=== PATIENT | male | born 1950 | race Caucasian/White ===

== ENCOUNTER 2017-02-24 13:07 | Inpatient (IN) | payer MEDICARE, OTHER ==
[~2017-02-24] VITALS: Ht 177.8 cm; Wt 95.5 kg
[~2017-02-24 13:07] MED LIST: ASA CHILDREN'S81 MG PO; AUGMENTIN875 MG PO; COZAAR DPS50 MG PO; MEVACOR20 MG PO; THERA1 EACH PO; TYLENOL DPS325 MG PO; VITAMIN D2400 UNIT PO
--- NOTE | 2017-02-26 09:26 | HP ---
ADMIT: 02/24/2017 RM/LOC: [facility] MR#: [id number] [address] [address] CHRISTOPHE FULTON [address] [place] [address] History and Physical SEX: M AGE: 66 : 1950 DATE OF SERVICE: 02/24/2017 CHIEF COMPLAINT: Lower abdominal pain. HISTORY OF PRESENT ILLNESS: Christophe Fulton presented to the emergency room after onset over the last 24 hours of a pretty severe fluctuating right lower quadrant abdominal pain, similar to the pain that he had last June when he was admitted to the hospital and diagnosed with acute Meckel diverticulitis. His bowel movements have been normal and he has not had any vomiting, may be a little nausea and really no other symptoms. He does not have any fevers, but he had period of chills before coming to the emergency room lasting several minutes. Dr. Nunes evaluated him and after examining him, ordered a CT scan of his abdomen which shows some terminal ileitis and most likely recurrent Meckel diverticulitis, it was not obstructed or obviously perforated. His workup also showed white count of 20,000 and a lactic acid above 5, so the sepsis protocol was undertaken and he is now getting IV fluid bolus. He has not been hypotensive. He denies any other symptoms. PAST MEDICAL HISTORY: He gets his regular general medical care at the [facility], although we see him episodically. Known chronic health conditions include type 2 diabetes, hypertension, dyslipidemia, and gout. PAST SURGICAL HISTORY: None. MEDICATIONS: 1. Losartan. 2. Vitamin D3. 3. Lovastatin. 4. Aspirin. ALLERGIES AND INTOLERANCES: Macrolides. Penicillin is in question but it is listed, he thinks he is probably not truly allergic to it. FAMILY HISTORY: Positive for coronary artery disease in both parents and in two siblings. Also hypertension, asthma, and diabetes in his siblings. SOCIAL HISTORY: He is , accompanied by spouse and family. He is a nonsmoker. No alcohol. REVIEW OF SYSTEMS: CONSTITUTIONAL: Chills. ENT: Negative. EYES: No acute complaints. RESPIRATORY: No cough or shortness of breath. CARDIOVASCULAR: No chest pain. GASTROINTESTINAL: As in the above history. GENITOURINARY: No acute complaints. MUSCLE, BONE, JOINT: No acute complaints. NEURO: Negative. PSYCH: Negative. ADMIT: 02/24/2017 RM/LOC: [facility] MR#: [id number] [address] [address] CHRISTOPHE FULTON [address] [place] [address] History and Physical SEX: M AGE: 66 : 1950 HEMATOLOGIC: No history of bleeding or blood clots. PHYSICAL EXAMINATION: GENERAL: He is obviously uncomfortable. VITAL SIGNS: Reviewed. He is not hypotensive. His heart rate is right at 100. His sats are mid 90s on room air. He is not tachypneic and not febrile. ENT: TMs are clear. Oral mucous membranes are moist. No nasal discharge. Hearing is satisfactory. EYES: Pupils are equal and reactive. Sclerae are normal. NECK: No masses or tenderness. LUNGS: Clear throughout. Normal respiratory effort. HEART: Regular rhythm. No murmurs. ABDOMEN: Tender in the right lower quadrant. Upper abdomen not tender. Bowel sounds normal. GENITALIA: Unremarkable to cursory exam. EXTREMITIES: Upper extremities, grossly normal. Lower extremities, grossly normal. No edema in his lower extremities. Good pulses in his feet. SKIN: No rashes. PSYCH: He is calm, not overtly anxious or depressed. NEURO: Grossly intact. IMPRESSION: 1. Acute recurrent Meckel diverticulitis. 2. Meets criteria for sepsis. 3. Type 2 diabetes. 4. Hypertension. PLAN: I have discussed with Dr. Oneal and also with MIKO Ackerman. He has been admitted. Follow the sepsis protocol. IV antibiotics have been ordered. Monitor his diabetes. We will hold his losartan and his other routine medications for the time being. We will appreciate the Surgery opinion as to if he needs surgery and the timing of surgery. Discussed all this with Christophe with family present. Victor Manuel Sofia MD/ cecily JOB #: [id number] CC: Andriy Nunes MD, Attending Physician UNKNOWN, Family Physician
[2017-03-03] MEDS ORDERED: FLAGYL-DPS500 MG PO (19:04)
[2017-03-03] MEDS ORDERED: CIPRO DPS500 MG PO (19:04)
[2017-03-03] MEDS ORDERED: VITAMIN D31000 UNI1 PO (19:06)
[2017-03-03] MEDS ORDERED: MIRALAX PACKET17 GM PO (19:06)
[2017-03-03] MEDS ORDERED: HYDROCODON-ACE1 EAC4 PO (19:07)
--- NOTE | 2017-03-05 21:25 | ER ---
ADMIT: 02/24/2017 RM/LOC: 409 [facility] MR#: [id number] [address] [address] KIKI GARCIA [address] [place] [address] Emergency Room Report SEX: M AGE: 66 : 1950 DATE: 02/24/2017 CHIEF COMPLAINT: Abdominal pain. HISTORY OF PRESENT ILLNESS: This is a pleasant 66-year-old male, who presents to the ER complaining of severe abdominal pain for the past 6 hours. The patient states he has felt fine over the last few days until this morning when he had an acute onset of lower abdominal pain. Initial conversation with the patient, he indicates he has severe right lower quadrant pain. He admits to chills, nausea, sweating, and loss of appetite. The patient states he was admitted in June 2016 with an exacerbation of Meckel diverticulitis. He has had no problems with this since that time. He was to follow up with Dr. Oneal for possible surgical intervention to remove the diverticulum; however, he has not followed up to date. He denies any change in his bowel habits. No diarrhea. No constipation. Denies any blood in his stool. No vomiting. PAST MEDICAL HISTORY: Significant for diabetes; however, he is not currently on any medication for this. He does have hypertension and hyperlipidemia for which he takes losartan and lovastatin. ALLERGIES: ERYTHROMYCIN AND PENICILLIN. COURSE IN THE ER: The patient is seen and examined. He is found to be in moderate distress, complaining of severe lower abdominal pain. The patient's belly is soft; however, there is some tenderness and guarding about the lower abdomen the patient indicates primarily over the right lower quadrant. Bowel sounds are decreased. He is slightly tachycardiac on initial exam. He was given a total of 10 mg of morphine and 2 mg of Dilaudid on department for pain control for which he states makes him comfortable, but he continues to rate pain as 6/10. LABORATORY DATA: Drawn significant for lactic acid of 5.6 as well as white count of 20.9, hemoglobin 14.8, hematocrit 43.9, and platelets 234. CMP; sodium 140, potassium 3.2, chloride 103, CO2 of 25, glucose 203, and creatinine 1.2. Liver enzymes within normal limits. Cardiac markers are ADMIT: 02/24/2017 RM/LOC: 409 [facility] MR#: [id number] [address] [address] KIKI GARCIA [address] [place] [address] Emergency Room Report SEX: M AGE: 66 : 1950 negative. EKG shows sinus tach without any ST-T changes. CT abdomen and pelvis is completed and discussed with both Dr. Estrada and Eusebio, who agree of CT significant for Meckel diverticulitis versus terminal ileitis. DISPOSITION: Dr. Nunes did see and examine the patient. Discussed the patient with Dr. Sofia, who agreed to admit the patient for IV antibiotics, pain control as well as surgical consultation. We did inform the patient of the lab and CT findings today as well as the need for hospitalization. The patient was admitted to med/surg under the care of Dr. Sofia in stable condition. IMPRESSION: Terminal ileitis versus Meckel diverticulitis. MIKO Alonso / Andriy Nunes MD / olivel JOB #: [id number] CC: Victor Manuel Sofia MD, Attending Physician Victor Manuel Sofia MD, Family Physician
--- NOTE | 2017-03-17 09:32 | DS ---
ADMIT: 02/24/2017 RM/LOC: 409 [facility] MR#: [id number] [address] [address] JOSEKIKI [address] [place] [address] General Discharge Summary SEX: M AGE: 66 : 1950 ADMISSION DATE: 02/24/2017 DISCHARGE DATE: 03/02/2017 FINAL DIAGNOSES: 1. Acute Meckel's diverticulitis. 2. Acute sepsis secondary to #1. 3. Postop urinary retention, resolved. 4. Type 2 diabetes. PROCEDURES: Exploratory laparoscopy, open, segmental small bowel resection of Meckel's diverticulum, and appendectomy NARRATIVE: This is a 66-year-old gentleman who was admitted to Acute Care. See my history and physical examination for more complete details. Chief complaint is lower abdominal pain over the 24 hours prior to admission, severe, right lower quadrant pain similar to the pain he had last June when he was admitted to the hospital and diagnosed with acute Meckel diverticulitis and managed medically at that time. In the emergency room, he had a white count of 20,000, lactate above 5, and it eventually showed elevation of his procalcitonin. His blood cultures came back negative. CT scan of the abdomen showed terminal ileitis and most likely recurrent Meckel's diverticulitis. Surgery was consulted and concurred with that diagnosis. Past medical history notable for the diagnoses above plus hypertension, dyslipidemia, and gout. Initial exam by myself in the emergency room showed him in obvious discomfort, heart rate 100. He was not hypertensive, saturating in mid 90s room air. He was not febrile. Cardiorespiratory exam unremarkable. Abdomen tender in right lower quadrant without rebound. Upper abdomen nontender. Had normal white count, was 20,000, which eventually normalized during his hospital stay. Hemoglobin and platelets unremarkable, as was his urinalysis. His BUN and creatinine were also within normal limits. Procalcitonin was 3.1. Bedside Accu-Cheks were stable throughout his hospital stay and for the most past less than 200. Blood culture showed no growth. Chest x-ray was negative. The patient was admitted to Acute Care. Surgery was consulted. He was treated with IV Mefoxin initially plus IV fluids. Medical status was monitored but his abdominal pain worsened on the second hospital day, so he was taken to the operating room where previously mentioned surgery was performed. Postoperatively, he had some issues with urinary retention which resolved without catheterization. His abdominal pain slowly improved. His diet and activity were advanced over the next several days. His home blood pressure medications were reinstituted by my partner in my absence. He was felt ready for dismissal on March 02. At that time, his vital signs are stable, he was voiding okay. He had had a bowel movement the day before. Postop pain was subsiding, so he was dismissed to office followups both with myself and with Dr. Oneal. DISCHARGE MEDICATIONS: 1. Cozaar 50 mg daily. ADMIT: 02/24/2017 RM/LOC: 409 [facility] MR#: [id number] [address] [place] [address] KIKI GARCIA [address] [place] [address] General Discharge Summary SEX: M AGE: 66 : 1950 2. MiraLax 17 g packet once a day. 3. Lortab for severe postop pain, otherwise Tylenol. 4. Vitamin D3 1000 units daily. 5. Aspirin 81 mg daily. 6. Multivitamin one daily. 7. Lovastatin 20 mg daily. Cipro and metronidazole were also ordered postoperatively. He would be on an ADA diet. After our followups, he would do his usual outpatient followup with the [facility], which is during the month of March. PROGNOSIS: Good. Victor Manuel Sofia MD/ cecily JOB #: [id number] CC: Victor Manuel Sofia MD, Attending Physician Victor Manuel Sofia MD, Family Physician . [facility]
--- NOTE | 2017-03-28 13:25 | OR ---
ADMIT: 02/24/2017 RM/LOC: 409 [facility] MR#: [id number] [address] [address] KIKI GARCIA [address] [place] [address] Operative/Delivery Room Report SEX: M AGE: 66 : 1950 SURGERY DATE: 02/25/2017 SURGEON: Marcial Oneal MD PREOPERATIVE DIAGNOSIS: Meckel's diverticulitis. POSTOPERATIVE DIAGNOSIS: Meckel's diverticulitis. FINAL PATHOLOGY: Pending. PROCEDURE PERFORMED: Exploratory laparoscopy, and then I did an open segmental small bowel resection of this Meckel's in the distal small bowel as well as an appendectomy. ANESTHESIA: General endotracheal tube anesthesia. ESTIMATED BLOOD LOSS: 50 mL or less. INDICATION FOR PROCEDURE: Please see H and P. PROCEDURE IN DETAIL: After the risks, benefits, possible complications, and the alternatives had been explained and informed consent had been obtained, the patient was taken back to the operating room, underwent general endotracheal tube anesthesia, and the surgical field was prepped and draped in sterile manner. First, an infraumbilical incision was made. The Veress needle was inserted. The abdomen was insufflated with CO2. Once there was adequate insufflation, a 5 mm suprapubic and another 5 mm left-sided port were placed. Started looking, there was no doubt the inflammatory changes were down the right lower quadrant. Started kind of moving some small bowel around. There were some little interloop abscesses. Once I kind of got some of this freed up and moved around, I could identify then what appears to be a diverticulum off the small bowel and diverticulitis. This just was not getting better with just some antibiotics and he had already been in previously once with antibiotics, so it appeared we had to resect this. I was able to look at the appendix, grossly appeared normal, maybe some serositis of the appendix. Where this diverticulum was located as seen in the pictures #2 and #3 there, kind of coming down into the mesentery, it was not going to be anything easy to resect laparoscopically. So, I got whole the bowel with a grasper, brought lower the right lower quadrant, chose an area, made an incision down through skin and subcutaneous tissue, placed a wound protector there and brought the small bowel up and then did a segmental small bowel resection, proximal and distal to this inflamed diverticulum. Clamped, divided, and ligated mesentery. I used a ROBBIE stapler to go across both pieces, proximal and distal small bowel. Then, opened the corners of it and created a [id number] stapled anastomosis using the ROBBIE stapler. Closed it off likewise, over sewed the carlos at the corners and intersecting staple lines with some silk suture, reinforced the crotch of the anastomosis with silk as well as closing the mesenteric defect with some silk suture. Once that was done, the bowel was returned to the abdominal cavity. After I ADMIT: 02/24/2017 RM/LOC: 409 [facility] MR#: [id number] [address] [place] [id number] KIKI GARCIA [address] [place] [address] Operative/Delivery Room Report SEX: M AGE: 66 : 1950 returned the small bowel to the abdominal cavity, the appendix was right there, so I went ahead and grasped it with a [place], brought it up, made a window in the mesoappendix come across the base with a ROBBIE stapler and then suture ligated the appendiceal mesentery there. There were no signs of any bleeding and that was returned to the abdomen. Everything appeared dry. At this point, I removed the wound protector, changed gloves. I then closed the incision with a couple of layers of PDS. Re-insufflated the abdomen, reinspected everything, irrigated again, removed as much irrigation as possible down the pelvis right lower quadrant. [place] that everything nicely cleaned up and so at this point, I injected a little more 0.5% Marcaine in the incision sites, removed as much CO2 as possible out of the abdomen, and all the ports were removed, and the skin was closed with carlos. He tolerated it well. He was being extubated when I left the room. He was in stable and satisfactory condition with all needle and lap counts correct x2. Marcial Oneal MD/ cecily JOB #: [id number] CC: Victor Manuel Sofia MD, Attending Physician Victor Manuel Sofia MD, Family Physician Victor Manuel Sofia MD
--- NOTE | 2017-03-28 13:25 | CO ---
ADMIT: 02/24/2017 RM/LOC: ER [facility] MR#: [id number] [address] [address] CHRISTOPHE GARCIA [address] [place] [address] Consultation SEX: M AGE: 66 : 1950 DATE OF CONSULTATION: 02/24/2017 ATTENDING PHYSICIAN: Andriy Nunes MD CONSULTING PHYSICIAN: Marcial Oneal MD REASON FOR CONSULTATION: Abdominal pain. HISTORY OF PRESENT ILLNESS: Christophe is a very pleasant 66-year-old male, who developed sudden onset of abdominal pain this morning about 0900 hours, and has been getting progressively worse. His abdominal pain is mainly located in the right lateral side of his abdomen. He has actually had symptoms like these before and he states he has a history of Meckel's diverticulum. We actually saw this patient for similar symptoms in June of last year, where at that time, we treated him conservatively and the patient responded well to this therapy. Today, he has abdominal pain and had one small run of nausea. He denies any hematemesis, diarrhea, constipation, dark or bloody stools. He further denies any fever, chills, or night sweats. He is currently in the ER due to his symptoms. PAST MEDICAL HISTORY: Significant for: 1. Type 2 diabetes. 2. Hypertension. 3. High cholesterol. 4. C. diff colitis. 5. Pneumonia. PAST SURGICAL HISTORY: No any significant surgeries, but has had an I and D for a parenchyma. ALLERGIES: ERYTHROMYCIN. MEDICATIONS: Well documented in chart. He does take a baby aspirin. FAMILY HISTORY: Noncontributory. SOCIAL HISTORY: The patient denies any tobacco, alcohol, or illicit drug use. REVIEW OF SYSTEMS: CONSTITUTIONAL: The patient denies any fever, chills, or night sweats. The rest of a comprehensive 10-point review of systems was performed and all other systems are negative. PHYSICAL EXAMINATION: GENERAL: The patient is in no acute distress. Although, he is ill appearing. HEENT: Head is normocephalic and atraumatic. EOMS are intact. Conjunctivae free of icterus, erythema, pallor. Pinnae, free of deformities. Nose, midline. No tracheal deviation. NECK: Supple. SKIN: Negative for jaundice, clubbing, edema, pallor, or cyanosis. ADMIT: 02/24/2017 RM/LOC: [facility] MR#: [id number] [address] [address] CHRISTOPHE GARCIA [address] [place] [address] Consultation SEX: M AGE: 66 : 1950 LUNGS: Clear to auscultation bilaterally. Normal respiratory effort. HEART: Distal pulses intact. Regular rate and rhythm. ABDOMEN: Soft, nondistended, tender in the right lateral abdomen. NEURO: Grossly intact. LABORATORY DATA: White blood cell count 20.9. Lactic 5.6. INR less than 1. DIAGNOSTIC IMAGING: CT of abdomen and pelvis revealed focal small bowel thickening in the proximal 6 to 8 cm of the cecum and right lower quadrant near the focal bowel wall thickening is minimal, inflammation with coffee blind ending bowel segments with a history of Meckel's. ASSESSMENT: 1. Abdominal pain. 2. Possible diverticulitis. 3. Focal small bowel wall thickening. PLAN: So far, Dr. Sofia is admitting the patient. Given this patient's history and recurrent of his symptoms, we are more likely to be aggressive in surgical management of this patient. However, since he is pretty sick we are going to let things cool off with IV antibiotics and fluid resuscitation. Dr. Oneal will follow him this weekend and see how the patient does. Thanks for the consultation of this patient. MIKO Ackerman / Marcial Oneal MD / cecily JOB #: [id number] CC: Andriy Nunes MD, Attending Physician UNKNOWN, Family Physician
--- NOTE | 2017-03-28 13:25 | CO ---
ADMIT: 02/24/2017 RM/LOC: 409 [facility] MR#: [id number] [address] [facility] [address] [place] [id number] JOSE KIKI D [address] [place] [address] Consultation SEX: M AGE: 66 : 1950 DATE OF CONSULTATION: 02/24/2017 ATTENDING PHYSICIAN: Victor Manuel Sofia MD CONSULTING PHYSICIAN: Marcial Oneal MD REASON FOR CONSULTATION: Questionable Meckel diverticulitis in this patient. ADDENDUM: You can see full dictated consult by Mariusz Flowers, my PA. HISTORY OF PRESENT ILLNESS: The patient is a 66-year-old male who actually several months ago, I would have to look back at the record, was in with similar pains that originally as he came in, they thought it was may be acute appendicitis, but ultimately scanned and ended up looking like a possible Meckel diverticulitis, little unusual, although we do see him. He got better though when I saw him he was getting significantly better on IV antibiotics and ultimately got out here in a couple days and got healed up. He says he had not had any problems since and then here today about 9:00 this morning started having little bit of pain, just kept getting worse and ends up coming into the ER for the similar types of pains. Again, they questioned possible acute appendicitis, and again, CT scan looks like a kind of a Meckel diverticulitis. Overall when I see him, his white count is up. His lactic acid was up. They have given him some IV fluids. He is feeling better. He has some antibiotics on board going, and at this point, his pain is significantly improved. He has had this more just localized to the right side, not diffuse as it was throughout the abdomen. He does not have an acute diffuse abdominal peritoneal signs. He does have some mild rebound in the right lower quadrant. At this point, I told him we are going to treat him with some fluids and IV antibiotics. There is little higher chance that we may end up having to put a laparoscope and then take a look to see what is going on in there at this time. He is agreeable. I will recheck him tomorrow, but currently no acute reason that he needs to go to the operating room at this time. Marcial Oneal MD/ cecily JOB #: [id number] CC: Victor Manuel Sofia MD, Attending Physician Victor Manuel Sofia MD, Family Physician
== END 2017-03-02 11:22 | disposition home or self-care (01) | DRG 855 ==
LOC: ER 13:07 → 4PCU 15:50
PROVIDERS: ADMIT Family Medicine
DX: A41.9 Sepsis, unspecified organism (principal); I10 Essential (primary) hypertension; Q43.0 Meckel's diverticulum (displaced) (hypertrophic); R33.9 Retention of urine, unspecified; E11.9 Type 2 diabetes mellitus without complications; E78.5 Hyperlipidemia, unspecified; R09.02 Hypoxemia; M10.9 Gout, unspecified; Z79.82 Long term (current) use of aspirin; Z82.49 Family history of ischemic heart disease and other diseases of the circulatory system